=== PATIENT | male | born 1950 | race African-American/Black ===

== ENCOUNTER 2024-06-30 09:59 | Emergency (ER) | payer OTHER ==
--- OUTSIDE RECORDS SUMMARY | 2024-06-30 10:02 | XMS REPORT | Continuity of Care Document ---
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 Encounters Start Date/Time End Date/Time Encounter Type Admission Type Attending Clinicians Care Facility Care Department Encounter ID Source 2023-01-26 18:00:00 2023-01-27 12:30:00 Inpatient David Pratt [id number] [facility] 2022-10-11 05:12:00 2022-10-11 05:12:00 Outpatient Jaylon Winn [facility] [id number] [facility] Results Test Description Test Time Test Comments Results Result Co mments Source BASIC METABOLIC [id number] 04:51:00* Test Item Value Reference Range Interpretation Comme nts SODIUM (test code = NA) 141 MMOL/L 137-145 N POTASSIUM (test code = K) 4.0 MMOL/L 3.5-5.1 N CHLORIDE (test code = CL) 106 MMOL/L 98-107 N CARBON DIOXIDE (test code = CO2) 28 MMOL/L 22-30 N GLUCOSE (test code = GLU) 110 MG/DL 74-106 H BLOOD UREA NITROGEN (test code = BUN) 14 MG/DL 9-20 N GLOMERULAR FILTRATION RATE (test code = GFR) > 60 The Glomerular Filtration Rate is a calculated parameterbased on serum Creatinine, patient age and sex. GFR valuesless than 60 mL/min/1.73 square meters are indicative ofChronic Kidney Disease. Values less than 15 mL/min/1.73square meters indicate Kidney failure. The calculation forGFR is based on the CKD-EPI (2020) calculation. This formulais race indifferent and is the recommended formula for GFRby the National Kidney Foundation for Adults.The GFR will not calculate if the sex is unknown or if thepatient's age is <18 years. CREATININE (test code = CREAT) 1.00 MG/DL 0.66-1.25 N CALCIUM (test code = CA) 8.8 MG/DL 8.4-10.2 N CBC W/AUTO [id number] 04:41:00* Test Item Value Reference Range Interpretation Comme nts WHITE BLOOD CELL (test code = WBC) 9.3 K/MM3 3.8-9.8 N RED BLOOD CELL (test code = RBC) 4.29 M/MM3 3.95-5.67 HEMOGLOBIN (test code = HGB) 13.2 G/DL 12.4-16.7 HEMATOCRIT (test code = HCT) 40.9 % 35.9-49.5 MEAN CELL VOLUME (test code = MCV) 95 fL 81.7-96.1 N MEAN CELL HGB (test code = MCH) 30.8 pg 27.6-33.2 N MEAN CELL HGB CONCETRATION (test code = MCHC) 32.3 % 32.9-35.5 L RED CELL DISTRIBUTION WIDTH (test code = RDW) 13.7 % 12.1-15.2 N PLATELET COUNT (test code = PLT) 204 K/MM3 129-368 N MEAN PLATELET VOLUME (test c ode = MPV) 9.7 fl 7.4-10.4 N NEUTROPHIL % (test code = NT%) 61.2 % 43-75 N IMMATURE GRANULOCYTE % (test code = IG%) 0.2 % 0.0-2.0 N LYMPHOCYTE % (test code = LY%) 27.4 % 14-44 N MONOCYTE % (test code = MO%) 9.3 % 4-13 N EOSINOPHIL % (test code = EO%) 1.4 % 0-6 N BASOPHIL % (test code = BA%) 0.5 % 0-2 N NUCLEATED RBC % (test code = NRBC%) 0.0 % 0-1.0 N NEUTROPHIL # (test code = NT#) 5.67 K/mm3 2.0-7.6 N IMMATURE GRANULOCYTE # (test code = IG#) 0.02 x10 3/uL 0-0.03 N LYMPHOCYTE # (test code = LY#) 2.54 K/mm3 1.0-3.8 N MONOCYTE # (test code = MO#) 0.86 K/mm3 0.1-0.8 H EOSINOPHIL # (test code = EO#) 0.13 K/mm3 0.0-0.2 N BASOPHIL # (test code = BA#) 0.05 K/mm3 0.0-0.2 N NUCLEATED RBC # (test code = NRBC#) 0.00 K/mm3 0.0-0.1 N GLUCOSE BEDSIDE [id number] 19:42:00* Test Item Value Reference Range Interpretation Comme nts GLUCOSE BEDSIDE TESTING (renato t code = GLUBED) 137 MG/DL 60-99 H BASIC METABOLIC [id number] 11:31:00* Test Item Value Reference Range Interpretation Comme nts SODIUM (test code = NA) 141 MMOL/L 137-145 N POTASSIUM (test code = K) 3.9 MMOL/L 3.5-5.1 N CHLORIDE (test code = CL) 103 MMOL/L 98-107 N CARBON DIOXIDE (test code = CO2) 30 MMOL/L 22-30 N GLUCOSE (test code = GLU) 113 MG/DL 74-106 H BLOOD UREA NITROGEN (test code = BUN) 16 MG/DL 9-20 N GLOMERULAR FILTRATION RATE (test code = GFR) > 60 The Glomerular Filtration Rate is a calculated parameterbased on serum Creatinine, patient age and sex. GFR valuesless than 60 mL/min/1.73 square meters are indicative ofChronic Kidney Disease. Values less than 15 mL/min/1.73square meters indicate Kidney failure. The calculation forGFR is based on the CKD-EPI (2020) calculation. This formulais race indifferent and is the recommended formula for GFRby the National Kidney Foundation for Adults.The GFR will not calculate if the sex is unknown or if thepatient's age is <18 years. CREATININE (test code = CREAT) 1.10 MG/DL 0.66-1.25 N CALCIUM (test code = CA) 10.0 MG/DL 8.4-10.2 N [id number] 11:31:00* Test Item Value Reference Range Interpretation Comme nts MAGNESIUM (test code = MAG) 2.0 MG/DL 1.6-2.3 N PROTHROMBIN [id number] 11:01:00* Test Item Value Reference Range Interpretation Comme nts PROTHROMBIN TIME PATIENT (test code = PTP) 12.4 SECONDS 10.1-12.6 N INTERNATIONAL NORMAL RATIO (test code = INR) 1.1 0.86-1.14 N The INR is to be used only for monitoring oral anticoagulanttherap y. INDICATION INR VALUE -------1. Prophylaxis, deep venous thrombosis, including high risk surgery. 2.0 - 3.0 2. Prophylaxis, deep venous thrombosis, hip surgery, treatment for deep venous thrombosis or pulmonary prevention of systemic embolism in patients with valvular heart disease, atrial fibrillation, tissue heart valve, or acute myocardial infarction. 2.0 - 3.0 3. Mechanical prosthesis heart valves, recurrent systemic embolism. 3.0 - 4.5 PTT [id number] 11:01:00* Test Item Value Reference Range Interpretation Comme [facility] PTT ACTIVATED (test code = APTT) 37.1 SECONDS 27.2-37.9 N CBC W/AUTO [id number] 10:49:00* Test Item Value Reference Range Interpretation Comme nts WHITE BLOOD CELL (test code = WBC) 9.3 K/MM3 3.8-9.8 N RED BLOOD CELL (test code = RBC) 5.11 M/MM3 3.95-5.67 N HEMOGLOBIN (test code = HGB) 15.8 G/DL 12.4-16.7 N HEMATOCRIT (test code = HCT) 48.8 % 35.9-49.5 N MEAN CELL VOLUME (test code = MCV) 96 fL 81.7-96.1 N MEAN CELL HGB (test code = MCH) 30.9 pg 27.6-33.2 N MEAN CELL HGB CONCETRATION (test code = MCHC) 32.4 % 32.9-35.5 L RED CELL DISTRIBUTION WIDTH (test code = RDW) 13.2 % 12.1-15.2 N PLATELET COUNT (test code = PLT) 245 K/MM3 129-368 N MEAN PLATELET VOLUME (test c ode = MPV) 9.5 fl 7.4-10.4 N NEUTROPHIL % (test code = NT%) 53.2 % 43-75 N IMMATURE GRANULOCYTE % (test code = IG%) 0.2 % 0.0-2.0 N LYMPHOCYTE % (test code = LY%) 31.5 % 14-44 N MONOCYTE % (test code = MO%) 9.3 % 4-13 N EOSINOPHIL % (test code = EO%) 4.6 % 0-6 N BASOPHIL % (test code = BA%) 1.2 % 0-2 N NUCLEATED RBC % (test code = NRBC%) 0.0 % 0-1.0 N NEUTROPHIL # (test code = NT#) 4.93 K/mm3 2.0-7.6 N IMMATURE GRANULOCYTE # (test code = IG#) 0.02 x10 3/uL 0-0.03 N LYMPHOCYTE # (test code = LY#) 2.92 K/mm3 1.0-3.8 N MONOCYTE # (test code = MO#) 0.86 K/mm3 0.1-0.8 H EOSINOPHIL # (test code = EO#) 0.43 K/mm3 0.0-0.2 H BASOPHIL # (test code = BA#) 0.11 K/mm3 0.0-0.2 N NUCLEATED RBC # (test code = NRBC#) 0.00 K/mm3 0.0-0.1 N COVID 19 INHOUSE [id number] 06:59:00* Test Item Value Reference Range Interpretation Comme nts COVID 19 INHOUSE AG (test code = [id number]) NEGATIVE Negative Per [facility] , negative results should be treated aspresumptive and, if inconsistent with clinical signs andsymptoms or necessary for patient management, should betested with an alternative molecular assay. Negative resultsdo not preclude SARS-CoV-2 infection and should not be usedas the sole basis for patient management decisions. Negative results should be considered in the context of apatient's recent exposures, history, presence of clinicalsigns and symptoms consistent with COVID-19. LIPID PROFILE (CORONARY RISK)2022-10-11 06:51:00* Test Item Value Reference Range Interpretation Comme nts TRIGLYCERIDES (test code = TRIG) 95 MG/DL 0-150 N CHOLESTEROL (test code = CHOL) 259 MG/DL 133-200 H CHOLESTEROL/HDL RATIO (test code = CHOLHDL) 5.63 RATIO See_Comment RISK ASSOCIATED WITH CHOL/HDL RATIOS: RISK MALE FEMALE1/2 AVERAGE 3.43 3.27AVERAGE 4.97 4.442X AVERAGE 9.55 7.053X AVERAGE 23.39 11.04 NOTE THAT THE REFERENCE VALUE IS RELATED TO RISK LEVELS ASRECOMMENDED BY THE [facility]ATIONAL [facility]. [Automated message] The system which generated this result transmitted reference range: 0-. The reference range was not used to interpret this result as normal/abnormal. HDL CHOLESTEROL (test code = HDL) 46 MG/DL 40-59 N NON-HDL CHOLESTEROL (test code = NHDL) 213 mg/dL <130 H LIPOPROTEIN LDL (test code = LDL) 199 MG/DL 0-129 H <100 [id number] 0 - 129 NEAR OPTIMAL/ABOVE [id number] - 159 [id number] - 189 HIGH>OR= 190 VERY HIGHNOTE THAT GUIDELINES ARE PROVIDED BY NATIONAL CHOLESTEROLEDUCATION PROGRAM ADULT TREATMENT PANEL III LDL/HDL (test code = LDL/HDL) 4.32 Ratio See_Comment H [Automated messa ge] The system which generated this result transmitted reference range: 1.48-3.22 Avg. The reference range was not used to interpret this result as normal/abnormal. [id number] 06:51:00* Test Item Value Reference Range Interpretation Comme nts MAGNESIUM (test code = MAG) 2.2 MG/DL 1.8-2.4 N COMPREHENSIVE METABOLIC [id number] 06:51:00* Test Item Value Reference Range Interpretation Comme nts SODIUM (test code = NA) 141 mmol/L 134-147 N POTASSIUM (test code = K) 4.0 mmol/L 3.4-5.0 N CHLORIDE (test code = CL) 110 mmol/L 100-108 H CARBON DIOXIDE (test code = CO2) 27 mmol/L 21-32 N ANION GAP (test code = GAP) 4.0 GAP calc 4.0-15.0 N GLUCOSE (test code = GLU) 121 MG/DL 70-110 H BLOOD UREA NITROGEN (test code = BUN) 16 MG/DL 7-18 N GLOMERULAR FILTRATION RATE (test code = GFR) >=60 max estimate estGFR >60 The Glomerular Filtration Rate is a calculated parameterbased on serum Creatinine, patient age and sex. GFR valuesless than 60 mL/min/1.73 square meters are indicative ofChronic Kidney Disease. Values less than 15 mL/min/1.73square meters indicate Kidney failure. The calculation forGFR is based on the CKD-EPI (202) calculation. This formulais race indifferent and is the recommended formula for GFRby the National Kidney Foundation for Adults.The GFR will not calculate if the sex is unknown or if thepatient's age is <18 years. CREATININE (test code = CREAT) 1.1 MG/DL 0.8-1.3 N TOTAL PROTEIN (test code = PROT) 8.5 G/DL 6.4-8.2 H ALBUMIN (test code = ALB) 3.6 G/DL 3.4-5.0 N GLOBULIN (test code = GLOB) 4.9 GM/dL ALBUMIN/GLOBULIN RATIO (test code = A/G) 0.7 RATIO 1.2-2.2 L CALCIUM (test code = CA) 9.6 MG/DL 8.5-10.1 N BILIRUBIN TOTAL (test code = BILT) 0.60 MG/DL 0.2-1.2 N SGOT/AST (test code = AST) 35 Unit/L 15-37 N SGPT/ALT (test code = ALT) 52 Unit/L 12-78 N ALKALINE PHOSPHATASE TOTAL (test code = ALKP) 73 Unit/L 50-136 N PROTHROMBIN [id number] 06:43:00* Test Item Value Reference Range Interpretation Comme nts PT PATIENT (test code = PTP) 11.6 SECONDS 9.3-12.9 N INTERNATIONAL NORMAL RATIO (test code = INR) 1.04 INR Unit 0.8-1.2 N TARGET INR BY INDICATION Indication INR1. Prophylaxis of venous thrombosis 2.0 - 3.0 (orthopedic surgery), Prophylaxis of venous thrombosis (other than high-risk surgery), Treatment of Deep Vein Thrombosis/Pulmonary Embolism, Prevention of systemic embolism - Tissue heart valves, Acute Myocardial Infarction (to prevent systemic embolism), Valvular heart disease, Acute Myocardial Infarction (to prevent systemic embolism), Valvular heart disease, Atrial Fibrillation, Bileaflet mechanical valve in aortic position.2. Mechanical prosthetic valves (high risk), 2.5 - 3.5 Presence of Lupus Anticoagulant or Antiphospholipid Antibodies, Prevention of systemic embolism - Acute Myocardial Infarction (to prevent recurrent infarct). THROMBOPLASTIN TIME [id number] 06:43:00* Test Item Value Reference Range Interpretation Comme nts THROMBOPLASTIN TIME PARTIAL (test code = PTT) 32.3 SECONDS 26-35 N CBC W/AUTO [id number] 06:42:00* Test Item Value Reference Range Interpretation Comme nts WHITE BLOOD CELL (test code = WBC) 6.8 K/mm3 3.5-11.0 N RED BLOOD CELL (test code = RBC) 5.30 M/mm3 4.70-6.10 N HEMOGLOBIN (test code = HGB) 16.2 G/DL 12.3-15.9 H HEMATOCRIT (test code = HCT) 48.9 % 35.8-46.7 H MEAN CELL VOLUME (test code = MCV) 92.3 Fl 86.3-98.9 N MEAN CELL HGB (test code = MCH) 30.6 pg 28.9-34.4 N MEAN CELL HGB CONCETRATION (test code = MCHC) 33.1 G/DL 32.1-34.5 N RED CELL DISTRIBUTION WIDTH (test code = RDW) 14.1 SD 11.5-14.5 N PLATELET COUNT (test code = PLT) 253 K/mm3 150-450 N MEAN PLATELET VOLUME (test c ode = MPV) 9.50 fL 7.0-9.6 N NEUTROPHIL % (test code = NT%) 52.0 % 40-76 N IMMATURE GRANULOCYTE % (test code = IG%) 0.3 % 0.0-5.0 N LYMPHOCYTE % (test code = LY%) 32.5 % 20.5-51.1 N MONOCYTE % (test code = MO%) 10.6 % 1.7-9.3 H EOSINOPHIL % (test code = EO%) 3.4 % 0.0-6.0 N BASOPHIL % (test code = BA%) 1.2 % 0.0-2.0 N NUCLEATED RBC % (test code = NRBC%) 0.0 /100WBC% 0.0-1.0 N NEUTROPHIL # (test code = NT#) 3.5 K/mm3 1.8-7.6 N IMMATURE GRANULOCYTE # (test code = IG#) 0.02 x10 3/uL 0.00-0.03 N LYMPHOCYTE # (test code = LY#) 2.2 K/mm3 0.6-3.0 N MONOCYTE # (test code = MO#) 0.7 K/mm3 0.2-1.5 N EOSINOPHIL # (test code = EO#) 0.2 K/mm3 0.0-0.4 N BASOPHIL # (test code = BA#) 0.1 K/mm3 0.0-0.2 N NUCLEATED RBC # (test code = NRBC#) 0.0 K/mm3 0.00-0.01 N MANUAL DIFF REQUIRED (test c ode = MDIFF) NO DIFF/SCN CRITERIA
[2024-06-30 10:21] LABS: Absolute Basophils 0.1 K/uL (0-0.5); Absolute Eosinophils 0.2 K/uL (0-0.5); Absolute Lymphocytes (CBC) 2.1 K/uL (0.7-4.9); Absolute Monocytes 0.6 K/uL (0.1-1.3); Absolute Neutrophil 7.5 K/uL (1.8-8.0); Basophils % 0.8 % (0-1.3); Hematocrit 43.7 % (39.6-49.0); Hemoglobin 14.2 g/dL (13.6-17.9); Lymphocytes % 19.8 % (15.3-44.8); MCH 31.1 pg (27.0-35.0); MCHC 32.5 g/dL (32.0-36.0); MCV 95.7 fL (80-100); MPV 8.1 fL (7.6-11.3); Monocytes % 5.9 % (3.3-12.3); Neutrophils % 71.5 % (41.7-73.7); Platelets 235 thou/uL (152-406); RBC Red Blood Cell Count 4.57 M/uL (4.33-5.43); Red Cell Distribution Width 13.9 % (12.1-15.2)
[2024-06-30 10:29] LABS: PT Prothrombin Time 12.4 SECONDS (9.4-12.5); PTT, Activated Partial Thromb 25.6 SECONDS (24.3-36.9); Protime INR 1.11
[2024-06-30 10:43] LABS: Albumin 3.2 g/dL (3.4-5.0); Albumin/Globulin Ratio 0.7 (1.1-1.8); Anion Gap 7.9 mEq/L (5.0-15.0); Bilirubin Total 0.7 mg/dL (0.2-1.0); Globulin 4.6 g/dL (2.3-3.5); Potassium 3.9 mEq/L (3.5-5.1); Protein, Total 7.8 g/dL (6.4-8.2)
--- NOTE | 2024-06-30 12:33 | RAD REPORT ---
EXAMINATION: CT ABDOMEN AND PELVIS WITH CONTRAST CLINICAL INDICATION: ABD PAIN TECHNIQUE: CT abdomen and pelvis was performed, after the administration of IV contrast, as per [facility] protocol. Axial, sagittal and coronal reconstructions were obtained. One or more of the following dose reduction techniques were used: Automated exposure control, adjustment of the mA and k V according to patient size, and iterative reconstruction. Unless otherwise specified, incidental findings do not require dedicated imaging follow-up. COMPARISON: No prior exam. FINDINGS: LOWER CHEST: The visualized lung bases are clear. LIVER: Normal in size and contour. No focal lesion. Grossly unremarkable gallbladder. SPLEEN: Normal size. No focal lesion. PANCREAS: No mass, ductal dilation, or salvatore-pancreatic fluid. ADRENALS: Normal; no mass. KIDNEYS: Normal size and contour. No hydronephrosis. GASTROINTESTINAL TRACT: No evidence of free air, significant intra-abdominal free fluid, bowel obstru ction or abscess. There is mild diverticulosis coli of the sigmoid colon without diverticulitis. APPENDIX: Normal appendix. LYMPH NODES: No lymphadenopathy. MUSCULOSKELETAL: Moderate multilevel spinal degenerative changes. ADDITIONAL FINDINGS: None. IMPRESSION: No acute or concerning abnormalities seen in the abdomen or pelvis.
--- NOTE | 2024-06-30 12:50 | ER ---
Nurse's Notes [facility] Name: Toro Kaiser Age: 73 yrs Sex: Male : 1950 Arrival Date: 06/30/2024 Time: 09:59 Bed 17 Private MD: Diagnosis: Diverticulosis of large intestine without perforation or abscess with bleeding Presentation: 06/30 10:06 Chief complaint: EMS states: BRIGHT RED BLOOD PER RECTUM SINCE 0330. Coronavirus bp screen: At this time, the client does not indicate any symptoms associated with coronavirus-19. Ebola Screen: No symptoms or risks identified at this time. Initial Sepsis Screen: Does the patient meet any 2 criteria? No. Patient's initial sepsis screen is negative. Does the patient have a suspected source of infection? No. Patient's initial sepsis screen is negative. Risk Assessment: Do you want to hurt yourself or someone else? Patient reports no desire to harm self or others. Onset of symptoms was June 30, 2024 at 03:30. Care prior to arrival: IV initiated. 18 GA, in the right antecubital area. 10:06 Method Of Arrival: EMS: [facility] bp 10:06 Acuity: MARU 3 bp Triage Assessment: 10:07 General: Appears in no apparent distress. comfortable, Behavior is calm, cooperative, bp appropriate for age. Pain: Denies pain. EENT: No deficits noted. Neuro: No deficits noted. Cardiovascular: No deficits noted. Respiratory: No deficits noted. GI: Reports rectal bleeding. : No signs and/or symptoms were reported regarding the genitourinary system. Derm: No deficits noted. Musculoskeletal: No deficits noted. Historical: - Allergies: 10:07 No Known Allergies; bp - Home Meds: 10:07 None [Active]; bp - PMHx: 10:07 Hypertensive disorder; bp - PSHx: 10:07 Coronary artery bypass graft; bp - Immunization history:: Adult Immunizations up to date. - Infectious Disease History:: Denies. - Social history:: Smoking status: Patient denies any tobacco usage or history of. Screenin:09 [facility] ED Fall Risk Assessment (Adult) History of falling in the last 3 months, bp including since admission No falls in past 3 months (0 pts) Confusion or Disorientation No (0 pts) Intoxicated or Sedated No (0 pts) Impaired Gait No (0 pts) Mobility Assist Device Used No (0 pt) Altered Elimination No (0 pt) Score/Fall Risk Level 0 - 2 = Low Risk Oriented to surroundings. Abuse screen: Denies threats or abuse. Denies injuries from another. Nutritional screening: No deficits noted. Tuberculosis screening: No symptoms or risk factors identified. Assessment: 10:09 General: Appears in no apparent distress. comfortable, Behavior is appropriate for age. bp Vital Signs: 10:06 BP 157 / 96; Pulse 75; Resp 16; Temp 97.9; Pulse Ox 98% ; bp ED Course: 10:01 Patient arrived in ED. ty 10:01 Jace Gilman MD is Attending Physician. ec2 10:06 Jonn Pierre, RN is Primary Nurse. bp 10:07 Triage completed. bp 10:07 Arm band placed on. bp 10:09 Patient has correct armband on for positive identification. bp 10:09 Maintain EMS IV. Dressing intact. Good blood return noted. Site clean \T\ dry. Gauge \T\ bp site: 18 RAC. Flushed with 10 mL NS. 11:28 CT Abd/Pelvis - IV Contrast Only In Process Unspecified. EDMS 12:49 Moody Zamorano MD is Referral Physician. ec2 12:53 Patient requests rest room assistance. ko1 12:53 Assisted to bathroom. ko1 13:11 IV discontinued, intact, bleeding controlled, No redness/swelling at site. Pressure ko1 dressing applied. Administered Medications: No medications were administered Medication: 10:09 VIS not applicable for this client. bp Outcome: 12:49 Discharge ordered by . ec2 13:34 Patient left the ED. ko1 Signatures: Dispatcher [employer] EDNM Jonn Pierre, TIGRE RN bp Deedee Montanez RN RN ko1 Jace Gilman MD MD ec2 Servando Biswas ty Corrections: (The following items were deleted from the chart) 10:10 10:09 Maintain EMS IV. Dressing intact. Good blood return noted. Site clean \T\ dry. bp Gauge \T\ site: 18 RAC. bp
--- NOTE | 2024-06-30 12:50 | EDPHYS ---
Physician Documentation [facility] Name: Toro Kaiser Age: 73 yrs Sex: Male : 1950 Arrival Date: 06/30/2024 Time: 09:59 Bed 17 Private MD: ED Physician Jace Gilman HPI: 06/30 10:11 This 73 yrs old Black Male presents to ER via EMS with complaints of Rectal Bleeding. ec2 10:11 Patient arrives today for evaluation of rectal bleeding. Patient reports that he has ec2 been experiencing intermittent rectal bleeding ongoing for the past 1 week. Patient reports no significant nausea or vomiting. Reports of upper abdominal pain. Patient reports otherwise no blood thinners. Reports no previous colonoscopy in the past.. Historical: - Allergies: 10:07 No Known Allergies; bp - Home Meds: 10:07 None [Active]; bp - PMHx: 10:07 Hypertensive disorder; bp - PSHx: 10:07 Coronary artery bypass graft; bp - Immunization history:: Adult Immunizations up to date. - Infectious Disease History:: Denies. - Social history:: Smoking status: Patient denies any tobacco usage or history of. ROS: 10:11 Constitutional: as per hpi ec2 Exam: 10:11 Constitutional: GEN: NAD Head: atraumatic Eyes: EOMI Ears: External ears are ec2 normal. CV: regular rate LUNGS: no respiratory distress ABD: non-distended, soft, minimally tender in epigastrium, not guarding, not rigid. Rectal examination shows bright red blood per rectum. No pain noted. SKIN: no evidence of rashes MSK: no evidence of trauma Vital Signs: 10:06 BP 157 / 96; Pulse 75; Resp 16; Temp 97.9; Pulse Ox 98% ; bp MDM: 10:01 Medical Screening Exam initiated ec2 10:11 Data reviewed: vital signs, nurses notes. ED course: Patient arrives today for ec2 evaluation of rectal bleeding. Examination yields bright red blood per rectum as noted in physical examination. Will obtain lab work, CT imaging. Differential diagnosis include processes such as diverticulosis, hemorrhoid, additionally considered other process such as brisk GI bleed. No melena noted however.. 10:50 ED course: Metabolic profile is reassuring. CBC without anemia. Coag profile is ec2 nonactionable. Pending CT imaging.. 06/30 10:02 Order name: CBC with Diff; Complete Time: 10:50 ec2 06/30 10:02 Order name: CMP; Complete Time: 10:50 ec2 06/30 10:02 Order name: Lipase; Complete Time: 10:50 ec2 06/30 10:02 Order name: PT-INR; Complete Time: 10:50 ec2 06/30 10:02 Order name: Ptt, Activated; Complete Time: 10:50 ec2 06/30 10:02 Order name: CT Abd/Pelvis - IV Contrast Only; Complete Time: 12:50 ec2 06/30 10:02 Order name: IV Saline Lock; Complete Time: 10:10 ec2 06/30 10:02 Order name: Labs collected and sent; Complete Time: 10:28 ec2 Administered Medications: No medications were administered Disposition Summary: 06/30/24 12:49 Discharge Ordered Notes: Location: Home ec2 Condition: Stable ec2 Diagnosis - Diverticulosis of large intestine without perforation or abscess with bleeding ec2 Followup: ec2 - With: Moody Zamorano MD - When: - Reason: Recheck today's complaints Discharge Instructions: - Discharge Summary Sheet ec2 - Diverticulosis ec2 Forms: - Medication Reconciliation Form ec2 - Antibiotic Education ec2 - Prescription Opioid Use ec2 - Patient Portal Instructions ec2 - Leadership Thank You Letter ec2 Signatures: Dispatcher [employer] Jonn Ruby, RN RN Jace Lam MD MD ec2
[2024-06-30 13:50] VITALS: BP 157/96; TEMP 97.9; O2SAT 98
== END 2024-06-30 13:34 | disposition home or self-care (01) ==
LOC: ER 09:59
DX: K57.31 Diverticulosis of large intestine without perforation or abscess with bleeding (principal); I10 Essential (primary) hypertension
CPT/HCPCS: 85025; 36415; 85610; 85730; 83690; 80053; 74177; 99283; Q9967